=== PATIENT | female | born 1945 | race Caucasian/White ===

== ENCOUNTER → 2016-11-16 | Outpatient (CLI) | payer BC, MEDICARE ==
--- NOTE | 2016-11-16 12:04 | RADRPT ---
PROCEDURE: XR Left Hip and pelvis. CLINICAL INDICATION: Left hip pain. Pelvic pain. Postop. TECHNIQUE: Three views. Frontal pelvis. Frontal and lateral left hip. COMPARISON: No prior studies are available for comparison. FINDINGS: There is no fracture or dislocation. The soft tissues are normal. There is a left hip hemiarthroplasty which appears satisfactory. There is no lytic or blastic lesion. The right hip is grossly normal. The upper pelvis is not included on the image. IMPRESSION: 1. Satisfactory postoperative appearance of the left hip. 2. Otherwise unremarkable study. RPTAT: QQ .Jaylon Salcedo MD, MD Date Time Electronically viewed and signed by .Jaylon Salcedo MD, on 11/16/2016 12:04 .R/
== END | disposition home or self-care (01) ==
LOC: HKI 10:42
PROVIDERS: ATTEND Orthopaedic Surgery
DX: Z47.1 Aftercare following joint replacement surgery (principal); Z96.642 Presence of left artificial hip joint
CPT/HCPCS: 73502; G0463

== ENCOUNTER → 2016-12-07 | Outpatient (CLI) | payer MEDICARE ==
--- NOTE | 2016-12-07 16:50 | RADRPT ---
PROCEDURE: XR Left Hip and pelvis. CLINICAL INDICATION: Left hip pain. Pelvic pain. Postop. TECHNIQUE: Three views. Frontal pelvis. Frontal and lateral left hip. COMPARISON: 11/16/2016. FINDINGS: There is no fracture or dislocation. The soft tissues are normal. There is a left hip hemiarthroplasty which appears satisfactory. The right hip is grossly normal. There is no lytic or blastic lesion. The upper pelvis is not included on the image. IMPRESSION: 1. Satisfactory postoperative appearance of the left hip. 2. Otherwise unremarkable study. RPTAT: QQ .Jaylon Salcedo MD, MD Date Time Electronically viewed and signed by .Jaylon Salcedo MD, MD on 12/07/2016 16:49 .R/
--- NOTE | 2016-12-07 16:50 | RADRPT ---
PROCEDURE: XR Femur. CLINICAL INDICATION: Left leg pain. Postop. TECHNIQUE: AP and lateral views of the left femur were performed. COMPARISON: None. FINDINGS: There is no fracture or dislocation. The soft tissues are normal. There is a left hip hemiarthroplasty which appears satisfactory. There is no lytic or blastic lesion. There are degenerative changes of the left knee with joint space narrowing and osteophytes. IMPRESSION: 1. Satisfactory postoperative appearance of the left hip. 2. Degenerative changes of the left knee. RPTAT: QQ .Jaylon Salcedo MD, MD Date Time Electronically viewed and signed by .Jaylon Salcedo MD, MD on 12/07/2016 16:50 .R/
--- NOTE | 2016-12-08 09:27 | HKNOTE ---
DATE OF SERVICE: 12/07/16 INTERVAL HISTORY: The patient presents today for a followup evaluation on her left hip. She sustained a mechanical fall at home. The patient was sitting in a wheelchair and was going to stand up and twisted her left knee on the foot rest and fell onto her left side. No KO. She is ambulatory, but is complaining of some buttock pain as well as pain just superior to her left knee. She is now 2 months out from her left hemiarthroplasty. She presents today for evaluation. PHYSICAL EXAMINATION: GENERAL: On exam today, she is alert and oriented x4, in no acute distress. She is ambulatory, but walks with an antalgic gait. EXTREMITIES: Exam of the left hip demonstrates adequate internal and external rotation. She does have some mild pain with impingement test. There is some ecchymosis along the lateral aspect of the leg just superior to the knee along the distal femur. There are no deformities noted. No soft tissue swelling. Compartments are otherwise soft. She is neurovascularly intact distally. IMAGING: Review of the left hip as well as AP and lateral of the left femur were obtained today and reviewed by me. Does show good anatomic location of the hemiarthroplasty. There are no fractures, paraspinous fractures, or dislocations noted. ASSESSMENT: Two months status post left hemiarthroplasty. The patient sustained a fall at home yesterday. PLAN: 1. Continue outpatient physical therapy as planned. 2. Walk with an assistive device until she is comfortable transitioning per her therapist. 3. Follow up in December as planned. Dictated By: FILIBERTO NEWMAN/BILLY Conf#: [id number] DID#: [id number] MTDD
== END | disposition home or self-care (01) ==
LOC: HKI 14:01
PROVIDERS: ATTEND Orthopaedic Surgery
DX: Z47.89 Encounter for other orthopedic aftercare (principal); M25.562 Pain in left knee
CPT/HCPCS: 73502; 73552; G0463

== ENCOUNTER → 2016-12-28 | Outpatient (CLI) | payer MEDICARE ==
--- NOTE | 2016-12-28 11:19 | RADRPT ---
PROCEDURE: XR AP pelvis and Hip. CLINICAL INDICATION: Pain. TECHNIQUE: AP and frog lateral views of the left hip were performed. COMPARISON: AP pelvis 12/07/2016 02:08 p.m. FINDINGS: There is a total left hip arthroplasty. There is narrowing of right left hip with degenerative spur s off the margin of the right acetabulum. IMPRESSION: 1. Osteoarthritis of the right hip. 2. Status post total left hip arthroplasty. 3. 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 RPTAT:AAJJ Physician Irma Date Time Electronically viewed and signed by Delvis Sr Physician on 12/28/2016 11:19 DEEPALI/
== END | disposition home or self-care (01) ==
LOC: HKI 10:20
PROVIDERS: ATTEND Orthopaedic Surgery
DX: Z47.1 Aftercare following joint replacement surgery (principal); S72.032D Displaced midcervical fracture of left femur, subsequent encounter for closed fracture with routine healing; Z96.642 Presence of left artificial hip joint
CPT/HCPCS: 73502

== ENCOUNTER → 2017-03-17 | Outpatient (CLI) | payer MEDICARE ==
--- NOTE | 2017-03-17 17:20 | RADRPT ---
PROCEDURE: XR Left Hip and pelvis. CLINICAL INDICATION: Left hip pain. Pelvic pain. Postop. TECHNIQUE: Three views. Frontal pelvis. Frontal and lateral left hip. COMPARISON: 12/28/2016. FINDINGS: There is no fracture or dislocation. The soft tissues are normal. There is a left hip hemiarthroplasty which appears satisfactory. There are degenerative changes of the right hip with joint space narrowing and osteophytes. There is no lytic or blastic lesion. The sacroiliac joints are unremarkable. IMPRESSION: 1. Satisfactory postoperative appearance of the left hip. 2. Moderate degenerative changes of the right hip. RPTAT: QQ .Jaylon Salcedo MD, MD Date Time Electronically viewed and signed by .Jaylon Salcedo MD, on 03/17/2017 17:19 .R/
== END | disposition home or self-care (01) ==
LOC: HKI 10:40
PROVIDERS: ATTEND Orthopaedic Surgery
DX: Z09 Encounter for follow-up examination after completed treatment for conditions other than malignant neoplasm (principal); Z96.642 Presence of left artificial hip joint; R10.2 Pelvic and perineal pain; M25.552 Pain in left hip
CPT/HCPCS: 73502